=== PATIENT | male | born 1980 | race Caucasian/White ===

== ENCOUNTER 2017-07-24 22:46 | Emergency (ER) | payer OTHER ==
[2017-07-24] MEDS ORDERED: TETRACAINE HCL 0.5% 4 ML OPHTH SOLN ONE ×2 (23:22→23:32)
[2017-07-24] MEDS ORDERED: NA BORATE/BORIC AC/H2O/NACL 120 ML OPHTH IRRIG SOLN ONE ×2 (23:23→23:32)
[2017-07-24] MEDS ORDERED: FLUORESCEIN SODIUM 0.6 MG STRIP ONE ×2 (23:23→23:32)
[2017-07-25] MEDS ORDERED: ERYTHROMYCIN BASE 0.5% OPHTH OINT 1 GM TUBE ONE (00:46)
== END 2017-07-25 00:54 | disposition home or self-care (01) ==
LOC: EDH 22:46
DX: H16.002 Unspecified corneal ulcer, left eye (principal)

== ENCOUNTER 2021-10-22 02:34 | Emergency (ER) | payer BC, OTHER ==
[~2021-10-22] VITALS: Ht 175.3 cm; Wt 81.6 kg
[2021-10-22 02:35] VITALS: BP 127/99
== END 2021-10-22 03:15 | disposition left against medical advice (07) ==
LOC: EDH 02:34
DX: S01.511A Laceration without foreign body of lip, initial encounter (principal); X58.XXXA Exposure to other specified factors, initial encounter; Y93.89 Activity, other specified; Y92.89 Other specified places as the place of occurrence of the external cause; Y99.8 Other external cause status; Z53.21 Procedure and treatment not carried out due to patient leaving prior to being seen by health care provider